=== PATIENT | female | born 1995 | race Caucasian/White ===

== ENCOUNTER 2018-03-05 01:50 | Inpatient (IN) | payer BC ==
[2018-03-05 02:28] LABS: ABS Basophils 0.1 10^3/ul (0-0.2); ABS Eosinophils 0.4 10^3/ul (0-0.6); ABS Lymphocytes 2.1 10^3/ul (1.0-4.8); ABS Monocytes 0.6 10^3/ul (0-0.8); ABS Neutrophils 5.7 10^3/ul (1.5-7.7); ABS Nucleated RBC 0 10^3/ul; Eosinophil % 4.5 % (0-6); Hematocrit 39 % (35-47); Hemoglobin 13.3 g/dl (12.0-16.0); Mean Corpuscular HGB Conc 34 g/dl (31-36); Mean Corpuscular Hemoglobin 32 pg (27-31); Mean Corpuscular Volume 94 fL (80-97); Mean Platelet Volume 7.6 um3 (7.4-10.4); Nucleated Red Blood Cells % 0; Platelet Count 251 10^3/ul (150-450); Red Blood Count 4.13 10^6/ul (4.00-5.40); Red Cell Distribution Width 13 % (10.5-15); White Blood Count 8.9 10^3/ul (3.5-10.8)
[2018-03-05 02:42] LABS: EGFR Non-African American 99.7 (>60)
--- NOTE | 2018-03-05 03:31 | ED ---
Psychiatric Complaint - HPI Summary HPI Summary: This is ronda Bhandari documenting for attending Dr. Amauri Aleman MD. A 23 y/o female presents to ED s/p overdose. Additionally c/o SI. As per triage , "told aunt and uncle that she wanted to kill self through over dose on pills, . her prescription pill". In the ED room, the patient was tearful. According to the patient, she attempted to overdose on some medications last week and this week she has been having much SI. The patient just came from [place] where on the [place] road, she was attempting to jump out of the car. She denies any medications today, however, when she did overdose last week she took muscle relaxers, Valium and sleeping medications of unknown quantities around 2100. Pt lives with family. No prior psychiatric admission. Currently on Seraquil. PMHx of bipolar disorder. - History Of Current Complaint Chief Complaint: EDMentalHealth Time Seen by Provider: 03/05/18 03:08 Hx Obtained From: Patient Onset/Duration: Sudden Onset, Lasting Weeks, Still Present Timing: Constant Aggravating Factor(s): Nothing Alleviating Factor(s): Nothing Related History: Negative For: Prior Psychiatric Issues Has Suicidal: Reports: Thoughts, With A Plan, Has Prior Attempt(s) - Allergies/Home Medications Allergies/Adverse Reactions: Allergies Allergy/AdvReac Type Severity Reaction Status Date / Time Penicillins Allergy Hives Verified 03/05/18 07:49 Home Medications: Home Medications Methocarbamol 750 mg PO Q6H PRN 03/05/18 [History Confirmed 03/05/18] Quetiapine Fumarate [Quetiapine 100 mg] 100 mg PO BEDTIME 03/05/18 [History Confirmed 03/05/18] Quetiapine Fumarate [Seroquel 50 mg tab] 50 mg PO QAM 03/05/18 [History Confirmed 03/05/18] Venlafaxine HCl [Venlafaxine HCl ER] 75 mg PO DAILY 03/05/18 [History Confirmed 03/05/18] PMH/Surg Hx/FS Hx/Imm Hx Endocrine/Hematology History: Reports: 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 Smoking Status (MU): Light Every Day Tobacco Smoker - Cigars, occasionally Review of Systems Negative: Fever Psychological: Other - POSITIVE: SI All Other Systems Reviewed And Are Negative: Yes Physical Exam - Summary Physical Exam Summary: VITAL SIGNS: Reviewed. GENERAL: Patient is a tearful female who is lying comfortable in the stretcher. Patient is not in any acute respiratory distress. HEAD AND FACE: No signs of trauma. No ecchymosis, hematomas or skull depressions. No sinus tenderness. EYES: PERRLA, EOMI x 2, No injected conjunctiva, no nystagmus. EARS: Hearing grossly intact. Ear canals and tympanic membranes are within normal limits. MOUTH: Oropharynx within normal limits. NECK: Supple, trachea is midline, no adenopathy, no JVD, no carotid bruit, no c- spine tenderness, neck with full ROM. CHEST: Symmetric, no tenderness at palpation LUNGS: Clear to auscultation bilaterally. No wheezing or crackles. CVS: Regular rate and rhythm, S1 and S2 present, no murmurs or gallops appreciated. ABDOMEN: Soft, non-tender. No signs of distention. No rebound no guarding, and no masses palpated. Bowel sounds are normal. EXTREMITIES: FROM in all major joints, no edema, no cyanosis or clubbing. NEURO: Alert and oriented x 3. No acute neurological deficits. Speech is normal and follows commands. SKIN: Dry and warm PSYCH: SI with plan. Triage Information Reviewed: Yes Vital Signs On Initial Exam: Initial Vitals Temp Pulse Resp BP Pulse Ox 97.3 F 79 17 131/93 100 03/05/18 01:54 03/05/18 01:54 03/05/18 01:54 03/05/18 01:54 03/05/18 01:54 Vital Signs Reviewed: Yes Diagnostics - Vital Signs Vital Signs Temp Pulse Resp BP Pulse Ox 03/05/18 01:54 97.3 F 79 17 131/93 100 - Laboratory Lab Results: Lab Results 03/05/18 03/05/18 Range/Units 02:19 02:19 WBC 8.9 (3.5-10.8) 10^3/ul RBC 4.13 (4.00-5.40) 10^6/ul Hgb 13.3 (12.0-16.0) g/dl Hct 39 (35-47) % MCV 94 (80-97) fL MCH 32 H (27-31) pg MCHC 34 (31-36) g/dl RDW 13 (10.5-15) % Plt Count 251 (150-450) 10^3/ul MPV 7.6 (7.4-10.4) um3 Neut % (Auto) 63.8 (38-83) % Lymph % (Auto) 24.0 L (25-47) % [place] % (Auto) 6.5 (0-7) % Eos % (Auto) 4.5 (0-6) % Baso % (Auto) 1.2 (0-2) % Absolute Neuts (auto) 5.7 (1.5-7.7) 10^3/ul Absolute Lymphs (auto) 2.1 (1.0-4.8) 10^3/ul Absolute Monos (auto) 0.6 (0-0.8) 10^3/ul Absolute Eos (auto) 0.4 (0-0.6) 10^3/ul Absolute Basos (auto) 0.1 (0-0.2) 10^3/ul Absolute Nucleated RBC 0 10^3/ul Nucleated RBC % 0 Sodium 139 (135-145) mmol/L Potassium 3.7 (3.5-5.0) mmol/L Chloride 105 (101-111) mmol/L Carbon Dioxide 25 (22-32) mmol/L Anion Gap 9 (2-11) mmol/L BUN 16 (6-24) mg/dL Creatinine 0.73 (0.51-0.95) mg/dL Est GFR ( Amer) 120.6 (>60) Est GFR (Non-Af Amer) 99.7 (>60) BUN/Creatinine Ratio 21.9 H (8-20) Glucose 88 (70-100) mg/dL Calcium 9.1 (8.6-10.3) mg/dL Total Bilirubin 0.40 (0.2-1.0) mg/dL AST 15 (13-39) U/L ALT 10 (7-52) U/L Alkaline Phosphatase 81 (34-104) U/L Total Protein 6.7 (6.4-8.9) g/dL Albumin 4.3 (3.2-5.2) g/dL Globulin 2.4 (2-4) g/dL Albumin/Globulin Ratio 1.8 (1-3) TSH 3.17 (0.34-5.60) mcIU/mL Beta HCG, Quant < 0.60 mIU/mL Salicylates < 2.50 (<30) mg/dL Acetaminophen < 15 mcg/mL Serum Alcohol < 10 (<10) mg/dL Result Diagrams: 03/05/18 02:19 03/05/18 02:19 Lab Statement: Any lab studies that have been ordered have been reviewed, and results considered in the medical decision making process. Course/Dx - Course Course Of Treatment: Pt was signed out by Dr. Aleman pending disposition, awaiting MHE - Differential Dx/Clinical Impression Provider Diagnosis: Depression Discharge - Sign-Out/Discharge Documenting (check all that apply): Patient Departure Signing out patient TO: Kelli Wan Receiving patient FROM: Amauri Aleman - Discharge Plan Condition: Fair Disposition: ADMITTED TO [facility] - Billing Disposition and Condition Condition: FAIR Disposition: Admitted to [facility]
[2018-03-05 03:51] LABS: Urine Appearance Cloudy; Urine Blood 3+ (Negative); Urine Color Yellow; Urine Ketones 1+ (Negative); Urine Protein 1+(30 mg/dL) (Negative); Urine Red Blood Cell 3+(>10/hpf) (Absent); Urine Specific Gravity 1.025 (1.010-1.030); Urine Urobilinogen Negative (Negative); Urine White Blood Cell Trace(0-5/hpf) (Absent)
--- NOTE | 2018-03-05 07:46 | ED ---
Progress - Progress Note Progress Note: This is ronda Aparicio documenting for attending Dr. Savage Pena Pt received in sign out at change of shift from Dr. Aleman on 03/05/18 at 0700. This patient is a 23 year old F presenting to [facility] accompanied by her aunt Vanessa, after ingestion of multiple pills on 2 occasions in suicide attempt. Pt endorses feeling sleepy at this time. She denies CP, SOB, abdominal pain and dizziness. Pt endorses CUELLAR since arrival, currently declines Tylenol. Pt did not eat yesterday. Physical Exam: Appearance: Well-appearing, moderate pain distress, well-nourished Skin: Warm, color reflects adequate perfusion, dry Head: Normal Head/Face inspection, atraumatic Eyes: Conjunctiva clear ENT: Normal inspection Neck: Supple, no nodes, no JVD Respiratory: Lungs clear, normal breath sounds, no respiratory distress Cardio: RRR, No murmur, pulses normal, brisk capillary refill Abdomen: Soft, non-tender Bowel sounds: Present Musculoskeletal: Strength Intact/ROM intact, no calf tenderness, no edema. Psychological: Normal Neuro: Alert, muscle tone normal, no focal deficit Course/Dx - Course Course Of Treatment: Pt was signed out by Dr. Aleman pending disposition, awaiting MHE. Per YANY Cordoba at 1337, Dr. Sarmiento accepts voluntary admission to [facility], dx depression. - Diagnoses Provider Diagnoses: Depression, Suicidal behavior - Provider Notifications Instructed by Provider To: Admit As Inpatient Discharge - Sign-Out/Discharge Documenting (check all that apply): Patient Departure - admit - Discharge Plan Condition: Fair Disposition: ADMITTED TO [facility] - Billing Disposition and Condition Condition: FAIR Disposition: Admitted to [facility]
[2018-03-05] MEDS: QUEtiapine TAB* 25 MG PO SCH (10:23)
[2018-03-05] MEDS: Venlafaxine EXT RELEASE CAP* 75 MG PO SCH (10:24)
[2018-03-05] MEDS: hydrOXYzine HCL TAB* 50 MG PO PRN ×2 (15:51→21:55)
[2018-03-05] MEDS: Acetaminophen TAB* 325 MG PO PRN (20:45)
[2018-03-05] MEDS ORDERED: QUEtiapine TAB* 100 MG PO SCH (21:00)
[2018-03-05] MEDS: Al Hydrox/Mg Hydrox/Simet LIQ* 30 ML UDC PO PRN (21:55)
[2018-03-06] MEDS: QUEtiapine TAB* 25 MG PO SCH (09:12)
[2018-03-06] MEDS: Venlafaxine EXT RELEASE CAP* 75 MG PO SCH (09:12)
[2018-03-06] MEDS ORDERED: Mouth Piece, Nicotine* 1 EACH CARTRIDGE INH PRN (13:07)
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
[2018-03-06] MEDS: Nicotine Inhaler* 10 MG AMP INH PRN (15:10)
[2018-03-06] MEDS: hydrOXYzine HCL TAB* 50 MG PO PRN ×2 (15:10→22:05)
[2018-03-06] MEDS: Lithium Carbonate ER* 450 MG TAB.ER PO SCH (21:30)
[2018-03-07] MEDS: Venlafaxine EXT RELEASE CAP* 37.5 MG PO SCH (08:46)
[2018-03-07] MEDS: Nicotine Inhaler* 10 MG AMP INH PRN ×2 (08:47→16:51)
[2018-03-07] MEDS: hydrOXYzine HCL TAB* 50 MG PO PRN (16:51)
[2018-03-07] MEDS: Lithium Carbonate ER* 450 MG TAB.ER PO SCH (19:38)
[2018-03-07] MEDS ORDERED: QUEtiapine TAB* 25 MG PO ONE (20:00)
--- NOTE | 2018-03-07 21:16 | PN ---
Subjective - Subjective Date of Service: 03/07/18 Service Type: 28028 Hosp care 15 min low complexity Subjective: Kalani was very eager to see a doctor today because her anxiety has been worse and her meds weren't helping. Otherwise denies self harming thoughts, delusions or hallucinations. In the milieu interacting with peers, eating and sleeping fairly she says. Objective - Appearance Appearance: Healthy Appearing Dysmorphic Features: No Hygiene: Normal Grooming: Well Kept - Behavior Psychomotor Activities: Normal Exhibits Abnormal Movement: No - Attitude and Relatedness Attitude and Relatedness: Appropriate Eye Contact: Good - Speech Quality: Unpressured Latencies: Normal Quantity: Appropriate - Mood Patient's Decription of Mood: "Terrible" - Affect Observed Affect: Non-labile Affect Consistent with: Euthymia - Thought Process Patient's Thought Process: Coherent, Goal Directed Thought Content: No Passive Wish, No Suicidal Planning, No Homicidal Ideation, No Paranoid Ideation - Sensorium Experiencing Hallucinations: No, Sensorium is Clear Type of Hallucinations: Visual: No, Auditory: No, Command: No - Level of Consciousness Level of Consciousness: Alert Orientation: Yes Intact, Yes Orientated to Time, Yes Orientated to Place, Yes Orientated to Person - Impulse Control Impulse Control: Intact - Insight and Judgement Insight and Judgement: Poor - Group Participation Particating in Group Activities: Yes - Medication Management Medication Management Adherence: Yes Assessment - Assessment Merits Inpatient Hospitalization: For Immediate Safety, For Stabilization, Pending Safe DC Plan Clinical Impression: Still symptomatic. Plan - Plan Treatment Plan: Name: KALANI MEHTA Birthdate: 1995 [id number] Continued Medication Management: Continue Outpt Medication Medications: Current Medications Acetaminophen (Tylenol Tab*) 650 mg PO Q4H PRN PRN Reason: for pain; or Temp >101 F Last Admin: 03/05/18 20:45 Dose: 650 mg Al Hydrox/Mg Hydrox/Simethicone (Maalox Plus*) 30 ml PO Q4H PRN PRN Reason: INDIGESTION Last Admin: 03/05/18 21:55 Dose: 30 ml Device (Nicotine Mouth Piece*) 1 each INH .USE WITH NICOTROL PRN PRN Reason: CRAVING Last Admin: 03/06/18 15:10 Dose: 1 each Hydroxyzine HCl (Atarax Tab*) 50 mg PO Q6H PRN PRN Reason: ANXIETY Last Admin: 03/07/18 16:51 Dose: 50 mg [place] Carbonate ([place] Carbonate Er Tab*) 450 mg PO BEDTIME [facility] Last Admin: 03/07/18 19:38 Dose: 450 mg Nicotine (Nicotine Inhaler*) 10 mg INH Q2H PRN PRN Reason: CRAVING Last Admin: 03/07/18 16:51 Dose: 10 mg Venlafaxine HCl (Effexor Xr Cap*) 37.5 mg PO DAILY [facility] Last Admin: 03/07/18 08:46 Dose: 37.5 mg - Discharge Plan Discharge Plan: Outpatient Follow Up Outpatient Program: [facility]
[2018-03-07] MEDS: Al Hydrox/Mg Hydrox/Simet LIQ* 30 ML UDC PO PRN (21:58)
[2018-03-08] MEDS: Venlafaxine EXT RELEASE CAP* 37.5 MG PO SCH (08:56)
[2018-03-08] MEDS: hydrOXYzine HCL TAB* 50 MG PO PRN ×2 (14:02→21:06)
[2018-03-08] MEDS: QUEtiapine TAB* 25 MG PO SCH (17:55)
[2018-03-08] MEDS: Prazosin CAP* 1 MG PO SCH (17:55)
[2018-03-08] MEDS: Lithium Carbonate ER* 450 MG TAB.ER PO SCH (20:31)
[2018-03-08] MEDS: Acetaminophen TAB* 325 MG PO PRN (20:33)
[2018-03-09 08:29] VITALS: BP 117/80
[2018-03-09] MEDS: QUEtiapine TAB* 25 MG PO SCH (08:40)
[2018-03-09] MEDS: Prazosin CAP* 1 MG PO SCH (08:40)
[2018-03-09] MEDS: Venlafaxine EXT RELEASE CAP* 37.5 MG PO SCH (08:41)
[2018-03-09] MEDS: hydrOXYzine HCL TAB* 50 MG PO PRN (11:00)
--- NOTE | 2018-03-09 13:11 | PN ---
MHU: Group Therapy Note - Service Type Service Type: 19405 Group Psychotherapy - Cognitive Behavioral Group Therapy ( CBT):Patient was attentive and participatory in CBT programming this morning, and remained in good behavioral control. Patient expressed positive insights regarding relevant treatment interventions and goals.
--- NOTE | 2018-03-10 09:41 | DS ---
CC: [facility] in [place] * DISCHARGE SUMMARY: DATE OF ADMISSION: 03/05/18 DATE OF DISCHARGE: 03/09/18 PROVIDER: Liz Denis NP in Psychiatry. SUPERVISING PHYSICIAN: Saad Sarmiento MD.* (DICTATED BY LIZ DENIS NP ) DIAGNOSES: [place] I: Bipolar I disorder. [place] II: Borderline personality disorder. CONDITION AT THE TIME OF DISCHARGE: Improved. Psychiatrically cleared, stable. She participated in some groups, was social with some peers. Her family is agreeable to discharge. She has done well here psychiatrically. She tolerated her new meds well and she will attend outpatient care in [place]. MENTAL STATUS EXAM: At the time of discharge, the patient is calm, cooperative and makes good eye contact. She is alert and oriented x3. Her grooming is good. Her speech pace is normal. Her thought processes are logical. She is not psychotic, she is not delusional. She denies AH, VH, SI, and HI. Insight and judgment are fair to good. She is willing to followup. DISCHARGE INSTRUCTIONS TO THE PATIENT: A. Medications: 1. [place] carbonate ER 450 mg at bedtime. 2. Prazosin HCL 2 mg daily. B. Diet: Regular. C. activities: As tolerated. She is a smoker. She has declined a referral to [place] [facility] smokers quit line. If she wants to choose this service, she can call [phone]. There are no studies pending at the time of discharge. D. Followup Care: She has appointments with [facility] and social work in [place]. E. Substance Abuse: Followup is not indicated. HOSPITAL COURSE: A. Chief complaint: "I am not okay. I don't trust people." The patient is a 23-year-old single white female with a history of bipolar disorder who was brought in by her family on a voluntary status. She is a woman from [place]. She came up with her uncle to visit his family who lives in [place], which she loves. This was recently after a breakup with her boyfriend who she has been with for almost a year. She did think she was but states she is not and her lab results agree with that. She and this boyfriend had long-term plan. She feels abandoned and rejected. She states this reminds her of her father who she estranged from. Even though he lives in her hometown, he does not speak to her. She states therefore that she does not trust anyone. She states she cannot open up to her family because they are not supportive of her. She states "I am not okay." B. Psychiatric treatment was rendered: The patient was admitted to adult behavioral unit and placed on 15-minute checks for safety. She did well on the unit although she did have an interaction with a peer that was unfortunate. She did go to groups and she interacted with some peers well. She did tolerate medication changes well. That medication change was an addition of lithium and prazosin. She is on a low dose of Seroquel. Her hemoglobin A1c was 5.1. Her triglycerides were 142, cholesterol 165, LDL cholesterol 94, HDL cholesterol 42.3. Incidentally her TSH is 2.17. Her family did visit and they were the ones who picked her up for discharge. No consults were entered. She is improved. Her anxiety is still high. Her sleep improved. She endorses better energy and slightly less restlessness. LIZ DENIS NP [id number]/[facility] #: [id number] [facility]
== END 2018-03-09 13:35 | disposition home or self-care (01) | DRG 753 ==
LOC: ED 01:50 → BSU 14:40
PROVIDERS: ADMIT Psychiatry & Neurology Psychiatry; ATTEND Psychiatry & Neurology Psychiatry
DX: F31.9 Bipolar disorder, unspecified (principal); R45.851 Suicidal ideations; C90.00 Multiple myeloma not having achieved remission; F60.3 Borderline personality disorder; F17.290 Nicotine dependence, other tobacco product, uncomplicated; Z79.899 Other long term (current) drug therapy
CPT/HCPCS: 36415; 80053; 80061; 80307; 80320; 80329; 81003; 81015; 83036; 84443; 84702; 85025; 87086; 90853; 99222; 99231; 99238; 99285; A9270-GY; G0480